=== PATIENT | female | born 1975 | race Caucasian/White ===

== ENCOUNTER → 2023-10-01 08:41 | Outpatient (REF) | payer BC, SELFPAY | LOC: RAD 08:41 | PROVIDERS: ATTENDING PHYSICIAN Surgery Vascular Surgery; FAMILY PHYSICIAN Physician Assistant | DX: I77.3 Arterial fibromuscular dysplasia (principal) | CPT/HCPCS: 70496; 70498; Q9967 ==

== ENCOUNTER → 2023-10-21 07:54 | Outpatient (REF) | payer BC, SELFPAY | LOC: HWRAD 07:54 | PROVIDERS: ATTENDING PHYSICIAN Surgery Vascular Surgery; FAMILY PHYSICIAN Physician Assistant | DX: I77.3 Arterial fibromuscular dysplasia (principal) | CPT/HCPCS: 93975 ==

== ENCOUNTER → 2024-11-02 08:54 | Outpatient (REF) | payer BC, SELFPAY | LOC: RAD 08:54 | PROVIDERS: ATTENDING PHYSICIAN Surgery Vascular Surgery; FAMILY PHYSICIAN Physician Assistant | DX: I77.3 Arterial fibromuscular dysplasia (principal) | CPT/HCPCS: 93880 ==